=== PATIENT | male | born 1935 ===

== ENCOUNTER → 2020-10-09 | Outpatient (CLI) | payer MEDICARE | LOC: LAB SHORT 11:03 → PLD 11:03 | DX: D48.5 Neoplasm of uncertain behavior of skin (principal); L57.0 Actinic keratosis; L87.0 Keratosis follicularis et parafollicularis in cutem penetrans; C44.209 Unspecified malignant neoplasm of skin of left ear and external auricular canal | CPT/HCPCS: 88341; 88342 ==